=== PATIENT | female | born 1965 | race Caucasian/White ===

== ENCOUNTER 2023-04-15 09:43 | Emergency (ER) | payer MEDICARE, MEDICAID, SELFPAY ==
--- NOTE | ~2023-04-15 | XR_ITS ---
EXAMINATION: XR KNEE, RIGHT CLINICAL INFORMATION: Right knee pain COMPARISON: None available. TECHNIQUE: Four views of the right knee. FINDINGS: No fracture or subluxation. Compartmental joint spaces are maintained. Enthesophyte formation of the patella. No joint effusion. The soft tissues are unremarkable. XR/XR knee RT 4V IMPRESSION: No fracture or malalignment. Enthesophyte formation of the patella.
[2023-04-15 09:56] VITALS: BP 109/64; PULSE 70; RESP 16; TEMP 36.6; O2SAT 97; BMI 28.0
--- NOTE | 2023-04-15 12:45 | ED_ITS ---
HPI - General Adult General Chief complaint: Extremity Injury, Lower Stated complaint: Twisted right leg Time Seen by Provider: 04/15/23 12:25 Source: patient Mode of arrival: ambulatory Limitations: no limitations History of Present Illness HPI narrative: 58 yold female presents to the ED for right knee pain since last night. Patient states while helping her friend move and clean her couch/bed she twisted her ri ght knee in awkard position and ever since has had pain. patient denies any knee swelling, redness, bluish black discoloration, crepitus, fever, chills, leg swelling, leg ecchymosis, calf pain, ulcers, leg wound for wound, red streaks, chest pain, or shortness of breath. Related Data Previous Rx's Medication Instructions Recorded naproxen 500 mg tablet 500 mg PO BID PRN pain 7 days #14 04/15/23 tabs prednisone 20 mg tablet 40 mg PO DAILY 5 days #10 tabs 04/15/23 Allergies Allergy/AdvReac Type Severity Reaction Status Date / Time codeine [Codeine] AdvReac Unknown VOMITING Unverified 06/15/20 14:46 Review of Systems Review of Systems: RIght knee pain Yes all other systems are reviewed and are negative [facility] Social History Social History Advance Directives: No Advance Directives Information Provided: Yes Physical Exam ED Vital Signs: Vital Signs - 24 hr 04/15/23 09:56 Temperature 98 F Pulse Rate 70 Respiratory Rate 16 Blood Pressure 109/64 Pulse Oximetry 97 Oxygen Delivery Method Room Air BMI result Body Mass Index 28.0 Const General: cooperative, healthy appearing, comfortable, no acute distress, well developed, alert and awake Orientation/consciousness: oriented to person, oriented to place, oriented to time and patient oriented x3 HENMT Head: Yes normal to inspection, Yes No palpable skull fracture present, Yes normocephalic, Yes atraumatic and No abrasion Eyes General: appearance normal, both eyes and all related structures Neck Neck: Yes normal visual inspection, Yes full ROM, Yes no lymphadenopathy, Yes no meningeal signs, Yes trachea midline, Yes supple, No anterior neck swelling and No tender Chest Chest palpation & inspection: normal inspection of the chest and normal palpation of entire chest wall Resp Effort & Inspection: normal respiratory effort and able to speak in complete sentences Auscultation: clear to auscultation bilaterally Cardio Jugular venous distension: no JVD Heart sounds: S1 normal heart sound present and S2 normal heart sound present GI Inspection: Yes normal to inspection and No abdominal wall ecchymosis Palpation (GI): Soft to palpation, not firm, nontender, no guarding and not rigid General: No CVA tenderness and Yes no CVA tenderness Back/Spine/Pelvis Back: no CVA tenderness, No CVA tenderness and No back tenderness Skin General skin exam: no rashes or lesions noted and elasticity normal Neuro General: oriented to person, oriented to place, oriented to time, patient oriented x3, gait normal, tone normal, moves all extremities, Normal light touch and pain sensation, no meningeal signs, no focal motor deficits, CN's II-XI intact bilaterally and normal sensation to monofilament Extrem General: Yes normal to inspection and Yes full ROM Knee images: 1. Positive for tenderness on palpation. Negative for crepitus, ecchymosis, deformity, erythema, or stiffness. Negative for hardness or coldness. Rest of extremity is normal. Motor, neuro, and vascular exam is intact. Psych Appearance: grossly normal, well kempt and not disheveled Medications Administered Discontinued Medications Generic Name Dose Route Start Last Admin Trade Name Freq PRN Reason Stop Dose Admin Ibuprofen 800 mg 04/15/23 12:33 04/15/23 12:54 Ibuprofen 800 Mg Tablet PO 04/15/23 12:34 800 mg ONCE ONE Administration Prednisone 60 mg 04/15/23 12:33 04/15/23 12:54 Prednisone 20 Mg Tablet PO 04/15/23 12:34 60 mg ONCE ONE Administration Medical Decision Making Medical Decision Making MDM Narrative: 58-year-old female presents to ED for right knee pain after twisting knee while friend move and clean bed. Patient denies any other trauma. Patient states history of meniscus tear in left knee. patient denies any knee swelling, redness, Swelling, calf pain, bluish black discoloration, chest pain, shortness of breath, fever, or chills. History physical exam does not indicate septic joint, cellulitis, arterial occlussion or DVT. Differential Diagnosis Differential Diagnoses: The differential diagnosis associated with the prese ntation includes ( DVT, septic joint, cellulitis, arterial occlusion, compartment syndrome, knee sprain, ligamentous/meniscus tear) Admission/Observation Consideration of admission/observation: Escalation of care including admission/observation considered Independent Interpretation I performed an independent interpretation of an: Plain X-Ray Radiology Impression Discussion of test interpretation with radiology: I have reviewed the radiologist's reading. Prescription Management I considered prescription management with: Pain Medication and Other (Steroid) Discharge Plan Discharge Clinical Impression: Knee sprain Patient Disposition: Home, Self-Care Instructions: Knee Sprain (ED), R.I.C.E. Treatment (ED) Additional Instructions: you need to follow-up with her primary care provider for possible MRI to rule out any meniscus/ligament tear. Return to the ED for any swelling, redness, bluish black discoloration, leg swelling, calf pain, chest pain, shortness of breath, fever, chills, or any other concerning symptoms. You received copy of xray results for your PCP. Prescriptions: New naproxen 500 mg tablet 500 mg PO BID PRN (Reason: pain) 7 Days Qty: 14 0RF prednisone 20 mg tablet 40 mg PO DAILY 5 Days Qty: 10 0RF Stand Alone Forms: Work/School Release Interventions: ED Discharge Assessment Last Done: 04/15/23 14:32 Discharge Date/Time: 04/15/23 14:33 Print Language: Montserratian
--- NOTE | 2023-04-15 12:48 | PC.NURSE ---
pt taken to xray at this time
[2023-04-15] MEDS: Ibuprofen 800 MG TABLET PO (12:54)
[2023-04-15] MEDS: predniSONE 20 MG TABLET 60 MG PO (12:54)
== END 2023-04-15 14:33 | disposition home or self-care (01) ==
PROVIDERS: Emergency Provider Emergency Medicine
DX: M25.561 Pain in right knee (principal)
CPT/HCPCS: 73564; 99283

== ENCOUNTER 2023-05-23 12:48 | Emergency (ER) | payer MEDICARE, MEDICAID, SELFPAY ==
--- NOTE | ~2023-05-23 | XR_ITS ---
EXAMINATION: XR CHEST CLINICAL INFORMATION: Found unresponsive in car COMPARISON: None available. TECHNIQUE: Frontal view of the chest was obtained. FINDINGS: No significant abnormality is noted involving the heart, lungs, mediastinum, bony thorax or soft tissues. Postsurgical changes to the lower cervical spine. XR/XR chest 1V IMPRESSION: No evidence for acute disease in the chest.
[2023-05-23 12:58] VITALS: BP 120/75; PULSE 68; RESP 16; TEMP 36.9; O2SAT 95
[2023-05-23 13:00] VITALS: BP 120/75; PULSE 68; RESP 14; TEMP 36.9; O2SAT 95; BMI 28.3
--- NOTE | 2023-05-23 13:04 | PC.NURSE ---
SECURITY AWARE OF PT ARRIVAL
--- NOTE | 2023-05-23 13:21 | ED.GENADULT ---
HPI - General Adult General Chief complaint: Overdose Stated complaint: MENTAL EVALUATION Time Seen by Provider: 05/23/23 12:58 Source: patient Mode of arrival: EMS Limitations: no limitations History of Present Illness HPI narrative: Patient is a 58 year old female who presents by EMS with [facility] after being found unresponsive in her car. EMS reports patient was found unresponsive in a running vehicle. She was cyanotic with pin point pupil and was given 8mg of narcan and taken out of her car by first responders. Patient then became AOx3. Patient states she smoked some marijuna earlier today but had not used any other drugs or alcohol. Patient reports she remembers going to the car and starting it but nothing after. Patient denies preceding symptoms. Patient states she was sick yesterday and vomited but had been feeling much better today with no other sx. Denies headache, dizziness, chest pain, palpitations, shortness of breath, nausea, vomiting, abd pain . Denies suicidal and homicidal ideation Related Data Previous Rx's Medication Instructions Recorded naproxen 500 mg tablet 500 mg PO BID PRN pain 7 days #14 04/15/23 tabs prednisone 20 mg tablet 40 mg PO DAILY 5 days #10 tabs 04/15/23 naloxone 4 mg/actuation nasal 4 mg intranasal Q2M PRN opioid 05/23/23 spray (Narcan) overdose #2 ea Allergies Allergy/AdvReac Type Severity Reaction Status Date / Time codeine [Codeine] AdvReac Unknown VOMITING Unverified 06/15/20 14:46 Review of Systems Review of Systems: Constitutional : No Weight loss, No Fever, No Chills, + Fatigue, Malaise ENT/Mouth : No sore throat, No Rhinorrhea Eyes: No Eye Pain, No Swelling, No Redness Cardiovascular : No Chest Pain, No SOB, No Dyspnea on Exertion, No Orthopnea, No Edema, No Palpitations Respiratory : No Cough, No Sputum, No Wheezing Gastrointestinal : No nausea and No vomiting, No Diarrhea, No Constipation, No abdominal Pain, No Hematochezia, No Melena Genitourinary : No Dysuria, No Urinary Frequency, No Hematuria, Musculoskeletal : No joint pain, No Myalgias, No Joint Swelling Skin : No Skin Lesions, No rash Neuro : No Weakness, No Numbness, No Dizziness, No Headache Psych : No Anxiety/Panic, No Depression, No SI/HI, no auditory visual or tactile hallucinations All other systems reviewed and are negative Yes all other systems are reviewed and are negative [facility] Past Medical History Attestation statement: The following information was validated with the patient. Source: old records reviewed and nursing notes reviewed Social History Social History Use of substances other than those prescribed or required for medical reasons: Refusing to respond Advance Directives: No Advance Directives Information Provided: No Patient : No Physical Exam ED Vital Signs: Vital Signs - 24 hr 05/23/23 12:58 05/23/23 13:00 05/23/23 14:58 Temperature 98.5 F 98.5 F 97.7 F Pulse Rate 68 68 55 Respiratory Rate 16 14 16 Blood Pressure 120/75 120/75 132/63 Pulse Oximetry 95 95 99 Oxygen Delivery Method Room Air Room Air Room Air BMI result Body Mass Index 28.3 VSS Appearance: Alert.? Oriented X3.? No acute distress.? Head: Normocephalic, atraumatic, no step-offs or deformities Eyes: Pupils equal, round and reactive to light.?EOMI pain free ENT: Pharynx normal.? Neck: Normal inspection.? Neck supple.? CVS: Normal heart rate and rhythm.? Pulses normal.? Respiratory: No respiratory distress.? Breath sounds normal.? Abdomen: Soft and nontender.? Negative Rovsing, McBurney's point, Smith's. Skin: Skin warm and dry.? Normal skin color.? Normal skin turgor.? Extremities: No lower extremity edema.? No calf ttp. 5/5 strength to bilateral upper and lower extremities Back: No midline tenderness, no C-spine tenderness, full range of motion, no CVA tenderness bilaterally Neuro: Oriented X 3.? No motor deficit.? No sensory deficit. CN 2-12 intact. Coordination intact, patient is ambulating around the unit with a steady gait. Normal [id number], negative Romberg and pronator drift. Course Reevaluation(s) Reevaluation #1: CBC appears to have slight leukocytosis likely reactive to dry heaving and nausea status post Narcan. Chemistry unremarkable. Normal lipase. Urine clean without infection. Urine toxicology positive for opiates, fentanyl, cocaine and marijuana. Salicylates acetaminophen ethanol negative. Patient pending substance use disorder evaluation. Not SI or HI. Patient wants to leave she can leave as long as she is not suicidal or homicidal. At this time patient to be placed into observation to allow more time to be evaluated by recovery/care team Time: 16:24 Reevaluation #2: 0726-Patient met with care team. Plan for discharge home. Offered to go narcan but refused. Patient is alert and oriented, walking with steady gait. VSS Medical Decision Making Medical Decision Making [facility] Narrative: 1:30 58 year old female presenting by EMS and [facility] for concern of an opioid overdose. Patient denies opioid use but admits to smoking marijuana this morning. Patient was found unresponsive and responded well to Narcan 8 mg intranasally Patient states that Narcan made her feel funny and made her nauseous and dry heave. Exam benign. This is likely an accidental opioid overdose. Unlikely ACS, PE, seizure, stroke or posterior stroke as patient is not having chest pain, shortness of breath and patient had an appropriate response to narcan. Unlikely metabolic or electrolyte derangements but will rule out with labs. Patient's nausea yesterday could have been secondary to GI upset versus viral illness. No signs of acute abdomen, cholecystitis, diverticulitis, pancreatitis, appendicitis or obstruction at this time Plan: Medical clearance Differential Diagnosis Differential Diagnoses: The differential diagnosis associated with the presentation includes This is likely an accidental opioid overdose. Unlikely ACS, PE, seizure, stroke or posterior stroke as patient is not having chest pain, shortness of breath and patient had an appropriate response to narcan. Unlikely metabolic or electrolyte derangements but will rule out with labs. No signs of acute abdomen, cholecystitis, diverticulitis, pancreatitis, appendicitis or obstruction at this time Admission/Observation Consideration of admission/observation: Escalation of care including admission/observation considered Not indicated. Lab Data [facility] Lab Attestation statement: I reviewed the patient's lab results. 05/23/23 14:04 05/23/23 14:04 Labs: Lab Results 05/23/23 05/23/23 05/23/23 Range/Units 14:04 14:04 14:04 WBC 13.9 H (4.8-10.8) X10*3/uL RBC 3.99 L (4.20-5.50) X10*6/uL Hgb 12.6 (12.0-16.0) g/dl Hct 37.7 (37.0-47.0) % MCV 94.5 (80.0-98.0) fL MCH 31.6 (27.0-33.0) pg MCHC 33.4 (31.0-35.0) g/dl RDW 11.9 (11.0-16.0) % Plt Count 267 (160-400) X10*3/uL MPV 10.2 (9.4-12.3) fL Immature Gran % (Auto) 0.3 (0.0-0.4) % Neut % (Auto) 86.8 H (45-73) % Lymph % (Auto) 6.4 L (20-40) % [place] % (Auto) 5.8 (2-11) % Eos % (Auto) 0.4 (0-4) % Baso % (Auto) 0.3 (0-2) % Lymph # (Auto) 0.9 L (1.2-4.9) X10*3/uL [place] # (Auto) 0.8 (0.1-1.2) X10*3/uL Eos # (Auto) 0.1 (0.0-0.4) X10*3/uL Baso # (Auto) 0.0 (0.0-0.2) X10*3/uL Abs Immat Gran (auto) 0.04 H (0.00-0.03) X10*3/uL Absolute Neuts (auto) 12.0 H (2.0-8.3) x10*3/uL Absolute Nucleated RBC 0.000 (0.0-0.012) X10*3/uL Nucleated RBC % (auto) 0.0 (0.0-0.2) /100WBC Sodium 141 (135-145) mmol/L Potassium 3.8 (3.3-5.1) mmol/L Chloride 105 (96-108) mmol/L Carbon Dioxide 28 (22-29) mmol/L Anion Gap 12 (12-20) BUN 16 (9-16) mg/dL Creatinine 0.83 (0.5-1.4) mg/dL Estim Creat Clear Calc 76.8 Estimated GFR > 60 Random Glucose 124 H (60-115) mg/dL Calcium 9.1 (8.4-10.2) mg/dL Total Bilirubin 0.2 (0.0-1.0) mg/dL AST 21 (5-31) U/L ALT 20 (0-31) U/L Alkaline Phosphatase 59 (39-117) U/L Total Protein 7.1 (6.5-8.0) g/dL Albumin 4.4 (3.5-5.0) g/dL Lipase 40 (8-78) U/L Urine Color Urine Appearance Urine pH (5.0-9.0) Ur Specific [place] (1.005-1.025) Urine Protein (Neg-Trace) mg/dL Urine Glucose (UA) (Negative) mg/dL Urine Ketones (Negative) mg/dL Urine Blood (Negative) Urine Nitrite (Negative) Ur Leukocyte Esterase (Negative) Urine RBC (0-2) /HPF Urine WBC (0-5) /HPF Ur Squamous Epith Cells (0-2) /HPF Urine Bacteria (None Seen) Hyaline Casts (0-2) /LPF Urine Test (NEGATIVE) Salicylates < 5.0 L (15-30) mg/dL Urine Opiates Screen (Not Detect) Urine Fentanyl Screen (Not Detect) Acetaminophen < 17 (<30) mcg/mL Ur Barbiturates Screen (Not Detect) Ur Phencyclidine Scrn (Not Detect) Ur Amphetamines Screen (Not Detect) U Benzodiazepines Scrn (Not Detect) Urine Cocaine Screen (Not Detect) U Marijuana (THC) Screen (Not Detect) Ethyl Alcohol mg/dL 05/23/23 05/23/23 05/23/23 Range/Units 14:04 16:04 16:04 WBC (4.8-10.8) X10*3/uL RBC (4.20-5.50) X10*6/uL Hgb (12.0-16.0) g/dl Hct (37.0-47.0) % MCV (80.0-98.0) fL MCH (27.0-33.0) pg MCHC (31.0-35.0) g/dl RDW (11.0-16.0) % Plt Count (160-400) X10*3/uL MPV (9.4-12.3) fL Immature Gran % (Auto) (0.0-0.4) % Neut % (Auto) (45-73) % Lymph % (Auto) (20-40) % [place] % (Auto) (2-11) % Eos % (Auto) (0-4) % Baso % (Auto) (0-2) % Lymph # (Auto) (1.2-4.9) X10*3/uL [place] # (Auto) (0.1-1.2) X10*3/uL Eos # (Auto) (0.0-0.4) X10*3/uL Baso # (Auto) (0.0-0.2) X10*3/uL Abs Immat Gran (auto) (0.00-0.03) X10*3/uL Absolute Neuts (auto) (2.0-8.3) x10*3/uL Absolute Nucleated RBC (0.0-0.012) X10*3/uL Nucleated RBC % (auto) (0.0-0.2) /100WBC Sodium (135-145) mmol/L Potassium (3.3-5.1) mmol/L Chloride (96-108) mmol/L Carbon Dioxide (22-29) mmol/L Anion Gap (12-20) BUN (9-16) mg/dL Creatinine (0.5-1.4) mg/dL Estim Creat Clear Calc Estimated GFR Random Glucose (60-115) mg/dL Calcium (8.4-10.2) mg/dL Total Bilirubin (0.0-1.0) mg/dL AST (5-31) U/L ALT (0-31) U/L Alkaline Phosphatase (39-117) U/L Total Protein (6.5-8.0) g/dL Albumin (3.5-5.0) g/dL Lipase (8-78) U/L Urine Color Urine Appearance Urine pH (5.0-9.0) Ur Specific [place] (1.005-1.025) Urine Protein (Neg-Trace) mg/dL Urine Glucose (UA) (Negative) mg/dL Urine Ketones (Negative) mg/dL Urine Blood (Negative) Urine Nitrite (Negative) Ur Leukocyte Esterase (Negative) Urine RBC (0-2) /HPF Urine WBC (0-5) /HPF Ur Squamous Epith Cells (0-2) /HPF Urine Bacteria (None Seen) Hyaline Casts (0-2) /LPF Urine Test NEGATIVE (NEGATIVE) Salicylates (15-30) mg/dL Urine Opiates Screen POSITIVE H (Not Detect) Urine Fentanyl Screen POSITIVE H (Not Detect) Acetaminophen (<30) mcg/mL Ur Barbiturates Screen Not Detected (Not Detect) Ur Phencyclidine Scrn Not Detected (Not Detect) Ur Amphetamines Screen Not Detected (Not Detect) U Benzodiazepines Scrn Not Detected (Not Detect) Urine Cocaine Screen POSITIVE H (Not Detect) U Marijuana (THC) Screen POSITIVE H (Not Detect) Ethyl Alcohol < 10 mg/dL 05/23/23 Range/Units 16:04 WBC (4.8-10.8) X10*3/uL RBC (4.20-5.50) X10*6/uL Hgb (12.0-16.0) g/dl Hct (37.0-47.0) % MCV (80.0-98.0) fL MCH (27.0-33.0) pg MCHC (31.0-35.0) g/dl RDW (11.0-16.0) % Plt Count (160-400) X10*3/uL MPV (9.4-12.3) fL Immature Gran % (Auto) (0.0-0.4) % Neut % (Auto) (45-73) % Lymph % (Auto) (20-40) % [place] % (Auto) (2-11) % Eos % (Auto) (0-4) % Baso % (Auto) (0-2) % Lymph # (Auto) (1.2-4.9) X10*3/uL [place] # (Auto) (0.1-1.2) X10*3/uL Eos # (Auto) (0.0-0.4) X10*3/uL Baso # (Auto) (0.0-0.2) X10*3/uL Abs Immat Gran (auto) (0.00-0.03) X10*3/uL Absolute Neuts (auto) (2.0-8.3) x10*3/uL Absolute Nucleated RBC (0.0-0.012) X10*3/uL Nucleated RBC % (auto) (0.0-0.2) /100WBC Sodium (135-145) mmol/L Potassium (3.3-5.1) mmol/L Chloride (96-108) mmol/L Carbon Dioxide (22-29) mmol/L Anion Gap (12-20) BUN (9-16) mg/dL Creatinine (0.5-1.4) mg/dL Estim Creat Clear Calc Estimated GFR Random Glucose (60-115) mg/dL Calcium (8.4-10.2) mg/dL Total Bilirubin (0.0-1.0) mg/dL AST (5-31) U/L ALT (0-31) U/L Alkaline Phosphatase (39-117) U/L Total Protein (6.5-8.0) g/dL Albumin (3.5-5.0) g/dL Lipase (8-78) U/L Urine Color Yellow Urine Appearance Cloudy Urine pH 5.5 (5.0-9.0) Ur Specific [place] 1.025 (1.005-1.025) Urine Protein 30 (1+) H (Neg-Trace) mg/dL Urine Glucose (UA) 500 H (Negative) mg/dL Urine Ketones Trace (Negative) mg/dL Urine Blood Negative (Negative) Urine Nitrite Negative (Negative) Ur Leukocyte Esterase Negative (Negative) Urine RBC 0-2 (0-2) /HPF Urine WBC 0-5 (0-5) /HPF Ur Squamous Epith Cells 11-20 (0-2) /HPF Urine Bacteria None Seen (None Seen) Hyaline Casts 3-5 (0-2) /LPF Urine Test (NEGATIVE) Salicylates (15-30) mg/dL Urine Opiates Screen (Not Detect) Urine Fentanyl Screen (Not Detect) Acetaminophen (<30) mcg/mL Ur Barbiturates Screen (Not Detect) Ur Phencyclidine Scrn (Not Detect) Ur Amphetamines Screen (Not Detect) U Benzodiazepines Scrn (Not Detect) Urine Cocaine Screen (Not Detect) U Marijuana (THC) Screen (Not Detect) Ethyl Alcohol mg/dL Core Measures AMI core measures followed: Yes Measure exclusions: not indicated Critical Care Time Critical Care Time Critical Care Time: No Discharge Plan Discharge Clinical Impression: Drug overdose, Substance abuse Patient Disposition: Home, Self-Care Instructions: Polysubstance Abuse (ED), Adult Overdose (ED) Additional Instructions: Take your medications as prescribed. If you were prescribed antibiotics today, it is important that you take your medication to their entirety, do not skip any doses, do not finish them early. Follow-up with your primary care provider this week. Return to the emergency department with new or worsening symptoms. Such as fevers, chills, chest pain, shortness of breath, nausea, vomiting, dizziness, headache, vision changes, lethargy In case of emergency call 911 Prescriptions: New naloxone [Narcan] 4 mg/actuation spray,non-aerosol 4 mg intranasal Q2M PRN (Reason: opioid overdose) Qty: 2 0RF Rx Instructions: spray 1 dose into ONE nostril; alternate nostrils w each dose until help arrives No Action naproxen 500 mg tablet 500 mg PO BID PRN (Reason: pain) 7 Days Qty: 14 0RF prednisone 20 mg tablet 40 mg PO DAILY 5 Days Qty: 10 0RF
--- NOTE | 2023-05-23 13:28 | PC.NURSE ---
patient presented to ED after being found unresponsive in car, given narcan by ems. patient states she smoked marijuana and does not understand why she is here, states she needs to leave.
[2023-05-23 14:09] LABS: MANUAL DIFF FLAG NO
[2023-05-23 14:14] LABS: Basophils Percent Auto 0.3 % (0-2); Eosinophils Absolute Auto 0.1 X10*3/uL (0.0-0.4); Eosinophils Percent Auto 0.4 % (0-4); Hematocrit 37.7 % (37.0-47.0); Hemoglobin 12.6 g/dl (12.0-16.0); Imm Gran Abs Auto 0.04 X10*3/uL (0.00-0.03); Imm Gran Pct Auto 0.3 % (0.0-0.4); Lymphocytes Absolute Auto 0.9 X10*3/uL (1.2-4.9); Lymphocytes Percent Auto 6.4 % (20-40); Mean Corpuscular HGB Conc 33.4 g/dl (31.0-35.0); Mean Corpuscular Hemoglobin 31.6 pg (27.0-33.0); Mean Corpuscular Volume 94.5 fL (80.0-98.0); Mean Platelet Volume 10.2 fL (9.4-12.3); Monocytes Absolute Auto 0.8 X10*3/uL (0.1-1.2); Monocytes Percent Auto 5.8 % (2-11); Neutrophils Percent Auto 86.8 % (45-73); Platelet Count 267 X10*3/uL (160-400); Red Blood Count 3.99 X10*6/uL (4.20-5.50); Red Cell Distribution Width 11.9 % (11.0-16.0); White Blood Count 13.9 X10*3/uL (4.8-10.8)
--- NOTE | 2023-05-23 14:34 | PC.NURSE ---
patient agreeable to lab work, patient resting in stretcher calm and cooperative.
[2023-05-23 14:48] LABS: Ethanol < 10 mg/dL
[2023-05-23 14:50] LABS: Alanine Aminotransferase 20 U/L (0-31); Albumin Level 4.4 g/dL (3.5-5.0); Alkaline Phosphatase 59 U/L (39-117); Anion Gap 12 (12-20); Aspartate Amino Transferase 21 U/L (5-31); Bilirubin Total 0.2 mg/dL (0.0-1.0); Blood Urea Nitrogen 16 mg/dL (9-16); Calcium 9.1 mg/dL (8.4-10.2); Carbon Dioxide 28 mmol/L (22-29); Chloride 105 mmol/L (96-108); Creatinine Clr Calc Pharmacy 76.8; Estimated Glomerular Filt Rate > 60; Glucose Random 124 mg/dL (60-115); Lipase 40 U/L (8-78); Potassium 3.8 mmol/L (3.3-5.1); Sodium 141 mmol/L (135-145); Total Protein 7.1 g/dL (6.5-8.0)
[2023-05-23 14:52] LABS: Acetaminophen LAB < 17 mcg/mL (<30); Salicylate < 5.0 mg/dL (15-30)
[2023-05-23 14:58] VITALS: BP 132/63; PULSE 55; RESP 16; TEMP 36.5; O2SAT 99
[2023-05-23 16:12] LABS: UPreg QC Valid YES; Urine Pregnancy NEGATIVE (NEGATIVE)
[2023-05-23 16:13] LABS: Appearance Urine Cloudy; Color Urine Yellow; Glucose Urine UA 500 mg/dL (Negative); Leukocyte Esterase Urine Negative (Negative); Nitrite Urine Negative (Negative); PH 5.5 (5.0-9.0); Specific Gravity - Urine 1.025 (1.005-1.025); UMIC TRIGGER UACC YES; Urine Blood Negative (Negative); Urine Ketones Trace mg/dL (Negative); Urine Protein 30 (1+) mg/dL (Neg-Trace)
[2023-05-23 16:21] LABS: Amphetamine Screen Urine Not Detected (Not Detect); Barbiturates, Urine Not Detected (Not Detect); Benzodiazepines Screen Urine Not Detected (Not Detect); Cannabinoid Screen Urine POSITIVE (Not Detect); Cocaine Screen Urine POSITIVE (Not Detect); Fentanyl, urine POSITIVE (Not Detect); Opiate Screen Urine POSITIVE (Not Detect); Phencyclidine Screen Urine Not Detected (Not Detect)
[2023-05-23 16:22] LABS: Bacteria Urine None Seen (None Seen); RBC Urine 0-2 /HPF (0-2); WBC Urine 0-5 /HPF (0-5)
--- NOTE | 2023-05-23 17:13 | HO.SUDE ---
Met with pt in ED6[facility] who is here for OD to complete SUDE. Narcan was administered to pt by EMS and responded to it with tests coming up positive for opiates, Fentanyl, cocaine, and THC. However pt is adamant she only took a few hits from my friends joint stating she was only smoking pot. T/W reviewed harm reduction and recovery resources and pt had no other questions or concerns at this time.
== END 2023-05-23 17:33 | disposition home or self-care (01) ==
PROVIDERS: Physician Assistant; Emergency Provider Emergency Medicine Emergency Medical Services
DX: T40.601A Poisoning by unspecified narcotics, accidental (unintentional), initial encounter (principal); Y92.9 Unspecified place or not applicable; F14.10 Cocaine abuse, uncomplicated; F11.10 Opioid abuse, uncomplicated; Z79.899 Other long term (current) drug therapy
CPT/HCPCS: 36415; 71045; 80053; 80143; 80179; 80307; 81001; 81025; 83690; 85025; 99284

== ENCOUNTER 2023-10-16 18:36 | Emergency (ER) | payer OTHER, SELFPAY ==
--- NOTE | ~2023-10-16 | XR_ITS ---
EXAMINATION: XR CHEST CLINICAL INFORMATION: Chest pain COMPARISON: 05/23/2023 TECHNIQUE: 2 views of the chest were obtained. FINDINGS: ACDF hardware is noted in the cervical spine. Surgical clips are present in the gallbladder fossa. No significant abnormality is noted involving the heart, lungs, mediastinum, bony thorax or soft tissues. XR/XR chest 2V IMPRESSION: Unremarkable examination.
--- NOTE | 2023-10-16 18:40 | ECG_ITS ---
Test Reason : chest pain Blood Pressure : / mmHG Vent. Rate : 086 BPM Atrial Rate : 086 BPM P-R Int : 162 ms QRS Dur : 102 ms QT Int : 384 ms P-R-T Axes : 062 -42 050 degrees QTc Int : 459 ms Normal sinus rhythm Possible Left atrial enlargement Left axis deviation Incomplete right bundle branch block Minimal voltage criteria for LVH, may be normal variant ( [place] product ) Abnormal ECG When compared with ECG of 02-MAR-2011 13:20, Vent. rate has increased BY 38 BPM T wave inversion less evident in Anterolateral leads QT has lengthened Referred By: Piyush Edouard Electronically Signed By:ANASTACIA ALEX
[2023-10-16 18:49] VITALS: BP 124/87; PULSE 83; RESP 20; TEMP 36.3; O2SAT 99; BMI 26.6
--- NOTE | 2023-10-16 18:51 | ED.GENADULT ---
HPI - General Adult General Chief complaint: Chest Pain Stated complaint: chest pain, hard to breath Time Seen by Provider: 10/16/23 20:57 History of Present Illness HPI narrative: Patient is a 58-year-old woman who is on levothyroxine and venlafaxine. She says that since September 24 she has been having problems with frequent nausea. She says that she had gotten briefly ill after Randal and has not really felt well since then. Over the last week she has also been having a discomfort in her chest that she describes as a pulling sensation in her mid chest. It has been mild over the last several days but has been more severe and constant since 10:00 this morning. She was at work at the time and came to the hospital after she finished work. There is no associated shortness of breath. No fever, sweats, chills. No pain or swelling in her legs. She does have ongoing nausea. She says that the pain is neither relieved or exacerbated by eating. The patient is also concerned about her thyroid function. Related Data Previous Rx's Medication Instructions Recorded naproxen 500 mg tablet 500 mg PO BID PRN pain 7 days #14 04/15/23 tabs prednisone 20 mg tablet 40 mg (2 x 20 mg) PO DAILY 5 days 04/15/23 #10 tabs naloxone 4 mg/actuation nasal 4 mg intranasal Q2M PRN opioid 05/23/23 spray (Narcan) overdose #2 ea omeprazole 40 mg capsule,delayed 40 mg PO DAILY #30 caps 10/16/23 release sucralfate 1 gram tablet 1 g PO BID PRN Epigastric pain #60 10/16/23 tabs Allergies Allergy/AdvReac Type Severity Reaction Status Date / Time codeine [Codeine] AdvReac Unknown VOMITING Verified 10/16/23 18:49 Review of Systems Review of Systems: Yes all other systems are reviewed and are negative [facility] Social History Social History Smoked in Last 30 Days: No Advance Directives: No Advance Directives Information Provided: Yes Physical Exam ED Vital Signs: Vital Signs - 24 hr 10/16/23 18:49 10/16/23 20:31 Temperature 97.4 F 98.3 F Pulse Rate 83 63 Respiratory Rate 20 14 Blood Pressure 124/87 107/74 Pulse Oximetry 99 97 Oxygen Delivery Method Room Air Room Air BMI result Body Mass Index 26.6 Const Other: The patient is awake, alert, pleasant, cooperative. She does not appear in any distress. She does not appear ill. HENMT Other: Face is symmetrical. Eyes Other: Pupils are round equal, conjunctivae are clear, extraocular movements intact Neck Other: No JVD, no swelling Resp Effort & Inspection: normal respiratory effort Auscultation: clear to auscultation bilaterally Cardio Rate: regular rate Rhythm: regular rhythm Heart sounds: S1 normal heart sound present and S2 normal heart sound present GI Other: The abdomen is flat, soft, nontender. Skin Other: Skin is dry and unremarkable. Neuro Other: Awake, alert, appropriate, grossly neurologically intact. Extrem Other: No peripheral edema. No calf swelling or tenderness. No calf asymmetry. Course Course Course Narrative: CECILIAE- 58 year old female presents for evaluation of chest pain and dizziness that started earlier today. Plan for labs, EKG, chest x-ray Medications Administered Discontinued Medications Generic Name Dose Route Start Last Admin Trade Name Freq PRN Reason Stop Dose Admin Al Hydroxide/Mg Hydroxide 60 ml 10/16/23 21:07 10/16/23 21:11 Magnesium Hydrox/Alum Hydrox 30 Ml Oral.Susp PO 10/16/23 21:08 60 ml ONCE ONE Administration Sucralfate 1 gm 10/16/23 22:21 10/16/23 22:31 Sucralfate Oral Suspension 1 Gm/10 Ml Oral.Susp PO 10/16/23 22:22 1 gm ONCE ONE Administration Medical Decision Making Medical Decision Making [facility] Narrative: The patient is a 58-year-old woman who does not have any history of coronary disease. Additionally she has no history of diabetes, hypertension, elevated cholesterol and she is a nonsmoker. Patient presents with chest pain that has been bothering her intermittently for a week but quite constantly since 10:00 this morning. No associated shortness of breath or diaphoresis. She has had antecedent problems with nausea for several weeks. Clinically the patient looks well. She has a right bundle branch block on her EKG but no definite acute findings. Her troponins are flat. She looks well. CBC, BMP, LFTs, and lipase are unremarkable. Chest x-ray is clear. I think the patient likely has chest pain from esophageal reflux. She was given Maalox without improvement and was also given sucralfate without improvement nevertheless I really do not have a suspicion for an alternative diagnosis. Her heart rate is normal, her oxygen level is excellent, she looks entirely well. The patient will be discharged with a prescription for omeprazole and for has needed sucralfate. The patient was also very concerned about her thyroid level. Her TSH is slightly high. I explained that she may wish to contact her primary care doctor to increase her dosage of her thyroid replacement hormone. She should return if worse. Lab Data 10/16/23 20:01 10/16/23 20:01 Labs: Lab Results 10/16/23 10/16/23 Range/Units 20:01 22:30 WBC 7.9 (4.8-10.8) X10*3/uL RBC 4.15 L (4.20-5.50) X10*6/uL Hgb 12.8 (12.0-16.0) g/dl Hct 37.8 (37.0-47.0) % MCV 91.1 (80.0-98.0) fL MCH 30.8 (27.0-33.0) pg MCHC 33.9 (31.0-35.0) g/dl RDW 12.1 (11.0-16.0) % Plt Count 265 (160-400) X10*3/uL MPV 10.3 (9.4-12.3) fL Immature Gran % (Auto) 0.3 (0.0-0.4) % Neut % (Auto) 64.4 (45-73) % Lymph % (Auto) 24.9 (20-40) % Nuckolls % (Auto) 6.4 (2-11) % Eos % (Auto) 3.2 (0-4) % Baso % (Auto) 0.8 (0-2) % Lymph # (Auto) 2.0 (1.2-4.9) X10*3/uL Nuckolls # (Auto) 0.5 (0.1-1.2) X10*3/uL Eos # (Auto) 0.3 (0.0-0.4) X10*3/uL Baso # (Auto) 0.1 (0.0-0.2) X10*3/uL Abs Immat Gran (auto) 0.02 (0.00-0.03) X10*3/uL Absolute Neuts (auto) 5.1 (2.0-8.3) x10*3/uL Absolute Nucleated RBC 0.000 (0.0-0.012) X10*3/uL Nucleated RBC % (auto) 0.0 (0.0-0.2) /100WBC PT 9.6 L (11.1-13.3) SEC INR 0.8 L (0.9-1.1) Sodium 143 (135-145) mmol/L Potassium 4.2 (3.3-5.1) mmol/L Chloride 106 (96-108) mmol/L Carbon Dioxide 26 (22-29) mmol/L Anion Gap 15 (12-20) BUN 14 (9-16) mg/dL Creatinine 0.86 (0.5-1.4) mg/dL Estim Creat Clear Calc 74.6 Estimated GFR > 60 Random Glucose 98 (60-115) mg/dL Calcium 9.6 (8.4-10.2) mg/dL Total Bilirubin 0.2 (0.0-1.0) mg/dL AST 17 (5-31) U/L ALT 12 (0-31) U/L Alkaline Phosphatase 70 (39-117) U/L Troponin I High Sens < 2.7 < 2.7 (<3.5-17.0) ng/L Total Protein 7.8 (6.5-8.0) g/dL Albumin 4.8 (3.5-5.0) g/dL Lipase 57 (8-78) U/L TSH 8.68 H (0.32-4.0) uIU/mL Free T4 0.79 (0.71-1.85) ng/dL Independent Interpretation I performed an independent interpretation of an: EKG Interpretation: EKG at 18:47 shows normal sinus rhythm at 86 beats per minute. There is a right bundle branch block. No definite acute changes. Previous EKG was from 2010. Discharge Plan Discharge Clinical Impression: Chest pain Patient Disposition: Home, Self-Care Instructions: Gastroesophageal Reflux Disease (ED) Additional Instructions: The blood test to check for your thyroid function today is called ?thyroid-stimulating hormone or TSH. Your TSH level today is slightly elevated at 8.68. Although this number is elevated it means your thyroid function is slightly low. Your regular doctor may wish to increase your thyroid dosage on this basis. I think the reason you are experiencing pain in your chest acid refluxing up into your esophagus from your stomach. This is also known as gastroesophageal reflux. I have sent a prescription for an acid reducing medication omeprazole to your pharmacy. Please take this daily. In addition I have sent a prescription for medication called sucralfate which you may use on an as-needed basis up to 2 times a day for any acid related symptoms in your stomach or chest. Please contact your regular doctor's office tomorrow morning to arrange follow-up for this problem. You may also discuss your thyroid medication dosage. Return to the emergency room if significantly worse. Prescriptions: New omeprazole 40 mg capsule,delayed release(DR/EC) 40 mg PO DAILY Qty: 30 0RF sucralfate 1 gram tablet 1 g PO BID PRN (Reason: Epigastric pain) Qty: 60 0RF No Action naproxen 500 mg tablet 500 mg PO BID PRN (Reason: pain) 7 Days Qty: 14 0RF prednisone 20 mg tablet 40 mg PO DAILY 5 Days Qty: 10 0RF naloxone [Narcan] 4 mg/actuation spray,non-aerosol 4 mg intranasal Q2M PRN (Reason: opioid overdose) Qty: 2 0RF Rx Instructions: spray 1 dose into ONE nostril; alternate nostrils w each dose until help arrives Referrals: Berta Cheung PA [Physician [employer] Manager] - (GERD, thyroid level)
[2023-10-16 20:06] LABS: MANUAL DIFF FLAG NO
[2023-10-16 20:07] LABS: Basophils Absolute Auto 0.1 X10*3/uL (0.0-0.2); Basophils Percent Auto 0.8 % (0-2); Eosinophils Absolute Auto 0.3 X10*3/uL (0.0-0.4); Eosinophils Percent Auto 3.2 % (0-4); Hematocrit 37.8 % (37.0-47.0); Hemoglobin 12.8 g/dl (12.0-16.0); Imm Gran Abs Auto 0.02 X10*3/uL (0.00-0.03); Imm Gran Pct Auto 0.3 % (0.0-0.4); Lymphocytes Percent Auto 24.9 % (20-40); Mean Corpuscular HGB Conc 33.9 g/dl (31.0-35.0); Mean Corpuscular Hemoglobin 30.8 pg (27.0-33.0); Mean Corpuscular Volume 91.1 fL (80.0-98.0); Mean Platelet Volume 10.3 fL (9.4-12.3); Monocytes Absolute Auto 0.5 X10*3/uL (0.1-1.2); Monocytes Percent Auto 6.4 % (2-11); Neutrophils Absolute Auto 5.1 x10*3/uL (2.0-8.3); Neutrophils Percent Auto 64.4 % (45-73); Platelet Count 265 X10*3/uL (160-400); Red Blood Count 4.15 X10*6/uL (4.20-5.50); Red Cell Distribution Width 12.1 % (11.0-16.0); White Blood Count 7.9 X10*3/uL (4.8-10.8)
[2023-10-16 20:18] LABS: INTERNATIONAL NORM RATIO 0.8 (0.9-1.1); Prothrombin Time 9.6 SEC (11.1-13.3)
[2023-10-16 20:23] LABS: Alanine Aminotransferase 12 U/L (0-31); Albumin Level 4.8 g/dL (3.5-5.0); Alkaline Phosphatase 70 U/L (39-117); Anion Gap 15 (12-20); Aspartate Amino Transferase 17 U/L (5-31); Bilirubin Total 0.2 mg/dL (0.0-1.0); Blood Urea Nitrogen 14 mg/dL (9-16); Calcium 9.6 mg/dL (8.4-10.2); Carbon Dioxide 26 mmol/L (22-29); Chloride 106 mmol/L (96-108); Creatinine Clr Calc Pharmacy 74.6; Estimated Glomerular Filt Rate > 60; Glucose Random 98 mg/dL (60-115); Lipase 57 U/L (8-78); Potassium 4.2 mmol/L (3.3-5.1); Sodium 143 mmol/L (135-145); Total Protein 7.8 g/dL (6.5-8.0)
[2023-10-16 20:31] VITALS: BP 107/74; PULSE 63; RESP 14; TEMP 36.8; O2SAT 97
[2023-10-16 20:33] LABS: Troponin-I High Sensitivity < 2.7 ng/L (<3.5-17.0)
[2023-10-16 20:44] LABS: TSH reflex Free T4 8.68 uIU/mL (0.32-4.0)
[2023-10-16] MEDS: Magnesium Hydrox/Alum Hydrox 30 ML ORAL.SUSP 60 ML PO (21:11)
[2023-10-16 21:18] LABS: Free T4 (Free Thyroxine) 0.79 ng/dL (0.71-1.85)
[2023-10-16] MEDS: Sucralfate Oral Suspension 1 GM/10 ML ORAL.SUSP PO (22:31)
[2023-10-16 22:56] LABS: Troponin-I High Sensitivity < 2.7 ng/L (<3.5-17.0)
[2023-10-16 23:21] VITALS: BP 136/72; PULSE 63
[2023-10-16] MEDS: Omeprazole 40 MG CAPSULE.DR PO (23:21)
== END 2023-10-16 23:47 | disposition home or self-care (01) ==
PROVIDERS: Physician Assistant; Emergency Provider Emergency Medicine
DX: R07.89 Other chest pain (principal); R06.02 Shortness of breath; Z79.899 Other long term (current) drug therapy
CPT/HCPCS: 36415; 71046; 80053; 83690; 84439; 84443; 84484; 85025; 85610; 93005; 99283; 99284

== ENCOUNTER → 2023-10-16 18:40 | Outpatient (BNV) | payer OTHER, SELFPAY | PROVIDERS: Emergency Provider Emergency Medicine; Visit Provider Internal Medicine | DX: R94.31 Abnormal electrocardiogram [ECG] [EKG] (principal) | CPT/HCPCS: 93010 ==